=== PATIENT | female | born 1955 | race Caucasian/White ===

== ENCOUNTER 2016-11-24 20:04 | Emergency (ER) | payer MEDICARE, MEDICAID ==
[~2016-11-24 20:04] MED LIST: ATARAX-DPS25 MG PO; BREATHING TREATMENT IH; BRINTELLIX20 MG PO; BUPROPION XL300 MG PO; BUSPAR DPS10 MG PO; COGENTIN DPS1 MG PO; DULERA 200/58.8 GM IH; HABITROL DPS21 MG TD; PROZAC DPS10 MG PO; RESTORIL15 MG PO; REXULTI4 MG PO; SEROQUEL DPS100 MG PO; TYLENOL DPS325 MG PO; [UNRECOGNIZED DRUG - OTHER] PO
--- NOTE | 2016-11-27 07:04 | ER ---
ADMIT: 11/24/2016 RM/LOC: ER [facility] MR#: [id number] [address] [facility] [address] [place], [place] [id number] BRITTANYMARYCARMENRUBEN Jimi [address] [place] [id number] Emergency Room Report SEX: F AGE: 61 : 1955 DATE: 11/24/2016 HISTORY OF PRESENT ILLNESS: The patient is a 61-year-old female with a past medical history of paranoid schizophrenia and multiple overdose, came to the ER with her daughter with a chief complaint of increase in memory problem. The daughter states that the patient recently had an overdose of Haldol and was hospitalized and was discharged. She was worried that this could have caused the increase in the recent memory loss. After asking and discussing the case more with the daughter, she said that the patient has a gradual onset of recent memory loss for the last few years, and is progressing, and she is looking for placement for the patient. Daughter denied any change in mental status during the last week or any new happenings. Daughter denies any head trauma or taking any new medication, and states that the medication was dispensed by her. The patient is not taking any drugs. After talking to the patient, she is awake, in no distress, alert and oriented to person, place, and time and situation. The patient states she feels okay and she has no idea what she can do for her. The patient denies any chest pain, shortness of breath, headaches, fevers, chills, nausea, vomiting, numbness, tingling. The patient denies any suicidal or homicidal ideation and also denies taking any extra medications or drugs. PHYSICAL EXAMINATION: HEAD AND NECK: Noncontributory. Pupils are 3 mm, reactive to light bilaterally. CHEST: Clear bilaterally. HEART: Normal cardiac sounds. ABDOMEN: Soft. NEUROLOGIC: Motor, sensory, cerebellar, gait and cranial nerves are all normal. IMAGING: CT of the brain did not show any acute changes or hemorrhage. CMP is noncontributory. CBC is also normal. UA was suggestive of urinary tract infection. The patient was given the medication for UTI. The patient is stable in no obvious pain or distress and was discharged to home, and daughter was advised to call the primary doctor tomorrow morning for followup for assessment and placement per their request. Daughter acknowledged she understood the plan and she agreed with the plan, was discharged to home. Dariel Dinero MD/ andrez JOB #: [id number] CC: Dariel Dinero MD, Attending Physician [place], Family Physician
== END 2016-11-24 22:45 | disposition home or self-care (01) ==
LOC: ER 20:04
DX: N39.0 Urinary tract infection, site not specified (principal); R41.3 Other amnesia; Z88.5 Allergy status to narcotic agent; Z79.899 Other long term (current) drug therapy